=== PATIENT | female | born 1945 | race Caucasian/White ===

== ENCOUNTER 2016-12-21 09:43 | Outpatient (CLI) ==
[2015-04-08 07:15] VITALS: BMI 23.7
--- NOTE | 2016-12-21 11:49 | MAMMO ---
EXAM: Bilateral digital screening mammogram History: Generalized left breast pain. Comparison: Bilateral mammogram 12/20/2013 Findings: MLO and CC views of bilateral breasts demonstrate scattered fibroglandular breast parench yma. Stable benign bilateral breast calcifications. There are no dominant masses, no suspicious mi crocalcifications and no architectural distortions Impression: Benign stable mammogram. Recommend return to routine screening mammography schedule. BIRADS 2
== END 2016-12-21 09:44 | disposition home or self-care (01) ==
LOC: RAD 09:43
PROVIDERS: ATTEND Family Medicine
DX: N64.4 Mastodynia (principal)

== ENCOUNTER 2018-12-02 13:06 | Outpatient (CLI) | payer OTHER ==
[2015-04-08 07:15] VITALS: BMI 23.7
--- NOTE | 2018-12-02 13:44 | CT ---
EXAM: CT THORAX HISTORY: Weight loss. TECHNIQUE: CT thorax without intravenous contrast. Multiplanar images presented. COMPARISON: None FINDINGS: Normal heart size. Trace pericardial effusion. There is moderate atherosclerotic disease. Limited evaluation of the mediastinum and hilar structures without the administration of intravenous contrast agent. A few nonpathologically enlarged lymph nodes are seen scattered in the hilar regions and the mediastinum, some which are calcified suggesting old granulomatous disease. Lungs are clear. Normal vascularity. No pleural fluid. The bones reveal moderate degenerative changes of the spine. See also same day CT abdomen and pelvis report. IMPRESSION: 1. Lungs are clear. 2. Atherosclerosis. 3. Nonspecific mediastinal lymph nodes.
--- NOTE | 2018-12-02 13:46 | CT ---
EXAM: CT of the abdomen pelvis without contrast History: Abdominal pain and weight loss. Comparison: Chest CT 12/02/2018, abdominal ultrasound 08/25/2013 Technique: Multiplanar CT images through the abdomen pelvis were obtained without the administration of IV contrast Findings: Heart is borderline enlarged. Lung bases are free of consolidation. No acute osseous abn ormalities. Osteopenia. No focal liver or splenic lesions identified within limitations of a noncontrast study. No gallstone s identified by CT. No peripancreatic inflammation. Adrenal glands are unremarkable. 2 mm calculus within the left kidney. Bilateral renal parapelvic cysts measuring up to 2 cm on the right and 3 cm on the left. Small fat-containing umbilical hernia. Within the right lower quadrant of the abdomen there is a twisting motion of mesenteric vessels. The loops of small bowel within the right lower q uadrant or fluid filled and borderline dilated. Uterus is atrophic. Large amount of colonic stool s een distending the colon especially the rectum. No free air and no ascites. The appendix is not see n. Most of the small bowel was seen within the right abdomen. No bladder wall thickening. Impression: 1. Possible internal hernia or developmental malrotation of the small bowel in the right lower quadr ant of the abdomen. No significantly dilated loops of small bowel are identified to indicate obstruc tion at this time. Surgical consult can be obtained especially if there is persistent pain. 2. Large amount of colonic stool compatible with constipation. 3. Nonobstructing left nephrolithiasis. 4. Bilateral renal parapelvic cysts
== END 2018-12-02 13:07 | disposition home or self-care (01) ==
LOC: RAD 13:06
PROVIDERS: ATTEND Family Medicine
DX: R63.4 Abnormal weight loss (principal); R10.9 Unspecified abdominal pain